=== PATIENT | female | born 1995 | race African-American/Black ===

== ENCOUNTER 2017-10-11 12:55 | Emergency (ER) | payer BC, OTHER ==
[~2017-10-11] VITALS: Ht 180.3 cm; Wt 75.0 kg
[~2017-10-11 12:55] MED LIST: CEPH500C3 PO
[2017-10-11 12:57] VITALS: BP 108/62; PULSE 80; RESP 13; TEMP 98.6; O2SAT 100
[2017-10-11] MEDS ORDERED: SODIUM CHLORID 0.9% 500 ML INJ 500 ML IV ONE (13:45)
--- NOTE | 2017-10-11 13:50 | PD ---
HPI Chief Complaint: Dizziness Time Seen by Provider: 13:28 Travel History International Travel<30 days: No Contact w/Intl Traveler<30days: No Traveled to known affect area: No History of Present Illness HPI 22-year-old female that presents to the ED for evaluation of dizziness and headache as well as chest discomfort. Per patient she's had this since today. Per patient she was seen at a different hospital last week for evaluation of similar. Per patient she feels like she is given off pain. Per patient she feels dizzy. Per patient her period started today and she is having abdominal cramping. She denies any urinary or bowel movement issues. She denies any fevers chills or sweats. Per patient the chest discomfort is 4 out of 10. Denies . Per patient she was able to follow with her doctor who has referred her to a router operator pin and a operations label clerk and she has not seen him yet. Per patient she is not sure what she was referred to a operations label clerk but from what she still any she's been having heavy periods with menses since age 12 and she does have a history of sickle cell in the family been on herself. She states that she's had migraine headaches her whole life. She's been taking ibuprofen with minimal relief. Per patient the headache gets worse with light. Per patient she was told that the hospital that if she got worse she needed to come back. She states that she feels like she is have the same symptoms that she's given a passout as she had last time. Denies any numbness, tilling, weakness. No other medical issues. Takes no medications a daily basis. PFSH Past Medical History Diminished Hearing: No Medical other: Yes (intermittant syncopal episodes (4 times in the last 3 years )) Immunizations Current: Yes ?: Not LMP: current : 0 Past Surgical History Surgical History: No Previous Surgery Social History Alcohol Use: No Tobacco Use: No Substance Use: No Allergies-Medications (Allergen,Severity, Reaction): Coded Allergies: No Known Allergies (Verified Allergy, Unknown, 10/11/17) Reported Meds & Prescriptions Reported Meds & Active Scripts Active Zofran Odt (Ondansetron Odt) 4 Mg Tab 4 Mg SL Q6HR PRN Diclofenac Sodium DR (Diclofenac Sodium) 75 Mg Tabdr 75 Mg PO BID PRN Review of Systems Except as stated in HPI: all other systems reviewed are Neg Physical Exam Narrative GENERAL: SKIN: Warm and dry. HEAD: Atraumatic. Normocephalic. EYES: Pupils equal and round 4 mm reactive to light and accomodation. No scleral icterus. No injection or drainage. ENT: No nasal bleeding or discharge. Mucous membranes pink and moist. NECK: Trachea midline. No JVD. CARDIOVASCULAR: Regular rate and rhythm. No murmurs, S3, S4. RESPIRATORY: No accessory muscle use. Clear to auscultation. Breath sounds equal bilaterally. GASTROINTESTINAL: Abdomen soft, non-tender, nondistended. Hepatic and splenic margins not palpable. MUSCULOSKELETAL: Extremities without clubbing, cyanosis, or edema. No obvious deformities. Full range of motion of the upper and lower extremities bilaterally. 2+ pulses bilaterally. No lumbar, thoracic, cervical spine tenderness to palpation. NEUROLOGICAL: Awake and alert. No obvious cranial nerve deficits. Motor grossly within normal limits. Five out of 5 muscle strength in the arms and legs. Normal speech. PSYCHIATRIC: Appropriate mood and affect; insight and judgment normal. Data Data Last Documented VS Vital Signs Date Time Temp Pulse Resp B/P (MAP) Pulse Ox O2 Delivery O2 Flow Rate FiO2 10/11/17 15:08 100 Room Air 10/11/17 12:57 98.6 80 13 Orders Orders Electrocardiogram (10/11/17 13:33) Complete Blood Count With Diff (10/11/17 13:33) Comprehensive Metabolic Panel (10/11/17 13:33) Ckmb (Isoenzyme) Profile (10/11/17 13:33) Troponin I (10/11/17 13:33) Lipase (10/11/17 13:33) Urinalysis - C+S If Indicated (10/11/17 13:33) D-Dimer (10/11/17 13:33) Magnesium (Mg) (10/11/17 13:33) Thyroid Stimulating Hormone (10/11/17 13:33) Chest, Single Ap (10/11/17 13:33) Ct Brain W/O Iv Contrast(Rout) (10/11/17 13:33) Iv Access Insert/Monitor (10/11/17 13:33) Ecg Monitoring (10/11/17 13:33) Oximetry (10/11/17 13:33) Sodium Chlorid 0.9% 500 Ml Inj (Ns 500 M (10/11/17 13:45) Orthostatic Vital Signs (10/11/17 13:34) Sodium Chlor 0.9% 1000 Ml Inj (Ns 1000 M (10/11/17 14:00) CKMB (10/11/17 13:40) CKMB% (10/11/17 13:40) Ed Urine Pregnancytest Poc (10/11/17 14:56) Ct Thorax/ Chest Wo Iv Contras (10/11/17 ) Ed Discharge Order (10/11/17 16:34) Labs Laboratory Tests Test 10/11/17 13:40 10/11/17 13:52 White Blood Count 5.5 TH/MM3 Red Blood Count 4.08 MIL/MM3 Hemoglobin 12.5 GM/DL Hematocrit 36.8 % Mean Corpuscular Volume 90.3 FL Mean Corpuscular Hemoglobin 30.7 PG Mean Corpuscular Hemoglobin Concent 34.0 % Red Cell Distribution Width 13.2 % Platelet Count 214 TH/MM3 Mean Platelet Volume 9.0 FL Neutrophils (%) (Auto) 68.1 % Lymphocytes (%) (Auto) 23.6 % Monocytes (%) (Auto) 7.1 % Eosinophils (%) (Auto) 0.9 % Basophils (%) (Auto) 0.3 % Neutrophils # (Auto) 3.8 TH/MM3 Lymphocytes # (Auto) 1.3 TH/MM3 Monocytes # (Auto) 0.4 TH/MM3 Eosinophils # (Auto) 0.1 TH/MM3 Basophils # (Auto) 0.0 TH/MM3 CBC Comment DIFF FINAL Differential Comment D-Dimer Quantitative (PE/DVT) 0.36 MG/L FEU Blood Urea Nitrogen 14 MG/DL Creatinine 1.00 MG/DL Random Glucose 74 MG/DL Total Protein 7.0 GM/DL Albumin 3.7 GM/DL Calcium Level 8.3 MG/DL Magnesium Level 1.9 MG/DL Alkaline Phosphatase 49 U/L Aspartate Amino Transf (AST/SGOT) 11 U/L Alanine Aminotransferase (ALT/SGPT) 12 U/L Total Bilirubin 0.4 MG/DL Sodium Level 139 MEQ/L Potassium Level 3.7 MEQ/L Chloride Level 107 MEQ/L Carbon Dioxide Level 24.6 MEQ/L Anion Gap 7 MEQ/L Estimat Glomerular Filtration Rate 82 ML/MIN Total Creatine Kinase 115 U/L Creatine Kinase MB 0.7 NG/ML Troponin I LESS THAN 0.02 NG/ML Lipase 93 U/L Thyroid Stimulating Hormone 3rd Gen 1.110 uIU/ML Urine Color YELLOW Urine Turbidity HAZY Urine pH 6.0 Urine Specific [place] 1.026 Urine Protein TRACE mg/dL Urine Glucose (UA) NEG mg/dL Urine Ketones NEG mg/dL Urine Occult Blood NEG Urine Nitrite NEG Urine Bilirubin NEG Urine Urobilinogen 2.0 MG/DL Urine Leukocyte Esterase NEG Urine RBC 1 /hpf Urine WBC 2 /hpf Urine Squamous Epithelial Cells 9 /hpf Urine Bacteria RARE /hpf Urine Mucus MOD /lpf Microscopic Urinalysis Comment CULT NOT INDICATED MDM Medical Decision Making Medical Screen Exam Complete: Yes Emergency Medical Condition: Yes Medical Record Reviewed: Yes Interpretation(s) CBC & BMP Diagram 10/11/17 13:40 Total Protein 7.0, Albumin 3.7, Calcium Level 8.3 L, Magnesium Level 1.9, Alkaline Phosphatase 49, Aspartate Amino Transf (AST/SGOT) 11 L, Alanine Aminotransferase (ALT/SGPT) 12, Total Bilirubin 0.[address] 10/11/173 Signed Impressions: Service Date/Time: Wednesday, October 11, 2017 14:24 - CONCLUSION: Normal examination. No significant change has occurred. Aurelio Cage MD Chest X-Ray 10/11/171332 Signed Impressions: Service Date/Time: Wednesday, October 11, 2017 14:01 - CONCLUSION: Findings suggesting a slitlike 7 mm left apical pneumothorax. Aurelio Cage MD EKG shows sinus rhythm with no sign of acute ischemia or arrhythmia read by me and attending. Troponin and CK-MB negative. UA negative. CT thorax negative Differential Diagnosis Chest pain versus syncope versus presyncope versus migraine headache versus tension headache versus anemia versus weakness versus vertigo Narrative Course 22-year-old female that presents to the ED for evaluation of possible syncope. Patient was properly examined and was found to have signs and symptoms consistent with appears to be chest pain with possible syncope. Per patient she had workup last week and a different hospital for this. We're getting records from [facility] for this. Patient does have a history of vasovagal syncope in our hospital before. She hasn't been hearing some time. Per history and physical he does appear that she might have some underlying anemia secondary to likely heavy menses. At this time I recommend labs and imaging. Per patient she not had a CT of her head and she is having a headache at this time. Labs and imaging were ordered. She was given IV fluids. Labs and imaging showed possible small pneumothorax per chest x-ray report. Unclear if it is true or pneumothorax or not. Patient's vitals and physical exam are reassuring. With the recommends CT to rule this out. Patient agrees. CT showed no sign of this. My attending and patient agree with plan. This time a recommendation is for follow-up outpatient with router operator pin and operations label clerk is his primary care doctor wanted. At this time I do not see any sign of acute disease. Labs are essentially unremarkable. Patient's vitals and physical exam are reassuring. I suspect maybe migraine headache causing some of the symptoms as patient states having headache. Chest pain appears to be a typical. She doesn't have any risk factors for ACS. D-dimer was negative as well. Patient was treated for this with diclofenac sodium and Zofran. Told to follow up closely with her regular doctor and her radiologist. See ED for worsening symptoms. Follow-up with PCP. Diagnosis Primary Impression: Pre-syncope Additional Impressions: Cephalgia Qualified Codes: G44.209 - Tension-type headache, unspecified, not intractable Atypical chest pain Patient Instructions: General Instructions, Narcotic given in the ED Additional Instructions: Take medications as prescribed. Follow-up with PCP. See ED for any worsening symptoms. Apply ice or heat as needed for pain Med/Other Pt SpecificInfo: Prescription(s) given Scripts Ondansetron Odt (Zofran Odt) 4 Mg Tab 4 MG SL Q6HR Y for Nausea/Vomiting, #30 TAB 0 Refills Prov: Rex Blackwell MD 10/11/[address] (Diclofenac Sodium DR) 75 Mg Tabdr 75 MG PO BID Y for PAIN SCALE 1 TO 10, #20 TAB 0 Refills Prov: Rex Blackwell MD 10/11/17 Disposition: 01 DISCHARGE HOME Condition: Stable Joshua Amaya Oct 11, 2017 13:50
[2017-10-11] MEDS ORDERED: SODIUM CHLOR 0.9% 1000 ML INJ 1,000 ML IV ONE (14:00)
[2017-10-11 14:07] LABS: AUTOMATED NEUTROPHIL # 3.8 TH/MM3 (1.8-7.7); BASOPHIL % 0.3 % (0.0-2.0); EOSINOPHIL # 0.1 TH/MM3 (0-0.4); EOSINOPHIL % 0.9 % (0.0-4.0); HEMATOCRIT 36.8 % (35.0-46.0); HEMOGLOBIN 12.5 GM/DL (11.6-15.3); LYMPH % 23.6 % (9.0-44.0); LYMPHOCYTE # 1.3 TH/MM3 (1.0-4.8); MEAN CELL VOLUME 90.3 FL (80.0-100.0); MEAN CORPUSCULAR HEMOGLOBIN 30.7 PG (27.0-34.0); MONO % 7.1 % (0.0-8.0); MONOCYTE # 0.4 TH/MM3 (0-0.9); NEUT % 68.1 % (16.0-70.0); PLATELET COUNT 214 TH/MM3 (150-450); RED BLOOD COUNT 4.08 MIL/MM3 (4.00-5.30); RED CELL DISTRIBUTION WIDTH 13.2 % (11.6-17.2); WHITE BLOOD COUNT 5.5 TH/MM3 (4.0-11.0)
[2017-10-11 14:11] LABS: BACTERIA, URINE RARE /hpf; BILIRUBIN, URINE NEG (NEG); BLOOD, URINE NEG (NEG); GLUCOSE,URINE NEG (NEG); KETONE, URINE NEG (NEG); MUCUS URINE MOD /lpf (OCC); NITRITE,URINE NEG (NEG); SQUAMOUS EPITHELIAL CELL URINE 9 /hpf (0-5); URINE COLOR YELLOW (YELLW/STRAW); URINE LEUKOCYTE ESTERASE NEG (NEG)
[2017-10-11 14:23] LABS: ALBUMIN 3.7 GM/DL (3.4-5.0); ALT (GPT) 12 U/L (10-53); AST (GOT) 11 U/L (15-37); BICARBONATE 24.6 MEQ/L (21.0-32.0); BLOOD UREA NITROGEN 14 MG/DL (7-18); CALCIUM 8.3 MG/DL (8.5-10.1); CHLORIDE 107 MEQ/L (98-107); GLOMERULAR FILTRATION RATE 82 ML/MIN (>89); GLUCOSE,RANDOM 74 MG/DL (74-106); MAGNESIUM 1.9 MG/DL (1.5-2.5); SODIUM (NA) 139 MEQ/L (136-145)
[2017-10-11 14:33] LABS: ALKALINE PHOSPHATASE 49 U/L (45-117); TOTAL BILIRUBIN ADULT 0.4 MG/DL (0.2-1.0); TROPONIN I LESS THAN 0.02 NG/ML (0.02-0.05)
--- NOTE | 2017-10-11 14:39 | RADRPT ---
EXAM DATE/TIME: 10/11/2017 14:01 [facility] COMPARISON: No previous studies available for comparison. INDICATIONS : Chest pain and syncopal. MEDICAL HISTORY : None. SURGICAL HISTORY : None. ENCOUNTER: Initial ACUITY: 1 month PAIN SCORE: 10/10 LOCATION: Bilateral chest FINDINGS: A single view of the chest demonstrates the lungs to be symmetrically aerated without evidence of mas s, infiltrate or effusion. The cardiomediastinal contours are unremarkable. Osseous structures are intact. There is suggestion of a slitlike 7 mm left apical pneumothorax CONCLUSION: Findings suggesting a slitlike 7 mm left apical pneumothorax. Aurelio Cage MD on October 11, 2017 at 14:35 Board Certified Radiologist. This report was verified electronically.
--- NOTE | 2017-10-11 14:43 | RADRPT ---
EXAM DATE/TIME: 10/11/2017 14:24 [facility] COMPARISON: CT BRAIN W/O CONTRAST, August 29, 2011, 21:16. INDICATIONS : Cephalgia today. RADIATION DOSE: 56.35 CTDIvol (mGy) MEDICAL HISTORY : None SURGICAL HISTORY : None. ENCOUNTER: Initial ACUITY: 1 day PAIN SCALE: 7/10 LOCATION: Bilateral head TECHNIQUE: Multiple contiguous axial images were obtained of the head. Using automated exposure control and adj ustment of the mA and/or kV according to patient size, radiation dose was kept as low as reasonably a chievable to obtain optimal diagnostic quality images. DICOM format image data is available electro nically for review and comparison. FINDINGS: CEREBRUM: The ventricles are normal for age. No evidence of midline shift, mass lesion, hemorrhage or acute in farction. No extra-axial fluid collections are seen. POSTERIOR FOSSA: The cerebellum and brainstem are intact. The 4th ventricle is midline. The cerebellopontine angle i s unremarkable. EXTRACRANIAL: The visualized portion of the orbits is intact. SKULL: The calvaria is intact. No evidence of skull fracture. CONCLUSION: Normal examination. No significant change has occurred. Aurelio Cage MD on October 11, 2017 at 14:40 Board Certified Radiologist. This report was verified electronically.
[2017-10-11 15:08] VITALS: O2SAT 100
--- NOTE | 2017-10-11 16:26 | RADRPT ---
EXAM DATE/TIME: 10/11/2017 16:14 [facility] COMPARISON: CHEST SINGLE AP, October 11, 2017, 14:01. INDICATIONS : Chest pain and shortness of breath today. RADIATION DOSE: 5.1 CTDIvol (mGy) MEDICAL HISTORY : None SURGICAL HISTORY : None. ENCOUNTER: Initial ACUITY: 1 day PAIN SCALE: 4/10 LOCATION: Bilateral chest TECHNIQUE: Volumetric scanning of the chest was performed. Using automated exposure control and adjustment of t he mA and/or kV according to patient size, radiation dose was kept as low as reasonably achievable to obtain optimal diagnostic quality images. DICOM format image data is available electronically for r eview and comparison. Follow-up recommendations for detected pulmonary nodules are based at a minimum on nodule size and pa tient risk factors according to Fleischner Society Guidelines. FINDINGS: LUNGS: There is no consolidation or pneumothorax. No concerning pulmonary nodule is visualized. PLEURAE: There is no pleural thickening or pleural effusion. MEDIASTINUM: The heart and great vessels demonstrate no acute abnormality. There is no mediastinal or hilar lymph adenopathy. AXILLAE: Within normal limits. No lymphadenopathy. MUSCULOSKELETAL: Within normal limits for patient age. MISCELLANEOUS: The visualized upper abdominal organs demonstrate no acute abnormality. CONCLUSION: Normal examination. No acute cardiopulmonary process. No evidence of left pneumothorax which was sug gested on chest x-ray Aurelio Cage MD on October 11, 2017 at 16:22 Board Certified Radiologist. This report was verified electronically.
[2017-10-11] MEDS ORDERED: DICL75TA PO (16:30)
[2017-10-11] MEDS ORDERED: ZOFR4TAB3 SL (16:30)
[2017-10-11] MEDS ORDERED: MORPHINE SULFATE 2 MG/ML INJ IV PUSH ONE (16:45)
[2017-10-11] MEDS ORDERED: KETOROLAC TROMETHAMINE 30 MG/ML (IVP) VIAL IV PUSH ONE (16:45)
[2017-10-11] MEDS ORDERED: ONDANSETRON HCL 4 MG/2 ML VIAL IV PUSH ONE (16:45)
[2017-10-11 16:58] VITALS: BP 118/71; PULSE 83; RESP 17; O2SAT 99
--- NOTE | 2017-10-12 17:26 | EKG ---
Date Performed: 10/11/2017 Time Performed: 15:04:04 PTAGE: 22 years EKG: Sinus rhythm NORMAL ECG PREVIOUS TRACING : 08/29/2011 19.29 Since the prior tracing, there has been no significant joseph DOCTOR: Walter Pink Interpretating Date/Time 10/12/2017 17:25:31
== END 2017-10-11 18:46 | disposition home or self-care (01) ==
LOC: NEPE 12:55
DX: R55 Syncope and collapse (principal); G44.209 Tension-type headache, unspecified, not intractable; R07.89 Other chest pain; N92.0 Excessive and frequent menstruation with regular cycle
CPT/HCPCS: 70450; 71045; 71250; 80053; 81001; 82550; 82552; 83690; 83735; 84443; 84484; 84703; 85025; 85379; 93005; 99285; J7030; J7040

== ENCOUNTER 2017-11-23 13:34 | Emergency (ER) | payer BC ==
[~2017-11-23] VITALS: Ht 182.9 cm; Wt 77.0 kg
[~2017-11-23 13:34] MED LIST changes: -CEPH500C3 PO; +DICL75TA PO; +ZOFR4TAB3 SL
[2017-11-23 13:48] VITALS: BP 108/54; PULSE 83; RESP 18; TEMP 98; O2SAT 99
== END 2017-11-23 16:06 | disposition left against medical advice (07) ==
LOC: NED 13:34
DX: R07.9 Chest pain, unspecified (principal); Z53.21 Procedure and treatment not carried out due to patient leaving prior to being seen by health care provider
CPT/HCPCS: 99281

== ENCOUNTER 2017-12-20 21:04 | Emergency (ER) | payer BC ==
[~2017-12-20] VITALS: Ht 182.9 cm; Wt 77.3 kg
[2017-12-20 21:25] VITALS: BP 109/56; PULSE 80; RESP 15; TEMP 98.7; O2SAT 100
--- NOTE | 2017-12-20 21:57 | PD ---
HPI Chief Complaint: GI Complaint Time Seen by Provider: 21:53 Travel History International Travel<30 days: No Contact w/Intl Traveler<30days: No Traveled to known affect area: No History of Present Illness HPI 22-year-old female with no significant past medical history, presents today with complaints of lower abdominal cramping with associated loose stools and nausea. Patient states that over the last 2 days she has had cramping in her lower abdominal area. She denies any vaginal bleeding or discharge. Patient states that she states it cramping feels as though it is like a menstrual period however there is no bleeding. She reports that she had loose stools 2 today. She states that when she got home, she had nausea and almost vomited. There are no other complaints at the time of my examination. PFSH Past Medical History Medical History: Denies Significant Hx Diminished Hearing: No Immunizations Current: Yes ?: Unknown LMP: 11/07/2017 : 0 Past Surgical History Surgical History: No Previous Surgery Social History Alcohol Use: Yes Tobacco Use: No Substance Use: No Allergies-Medications (Allergen,Severity, Reaction): Coded Allergies: No Known Allergies (Verified Allergy, Unknown, 10/11/17) Reported Meds & Prescriptions Reported Meds & Active Scripts Active Plus Iron 29-1 mg ( Vit-Iron Carbonyl) 29 Mg Iron-1 Mg Tab 1 Tab PO DAILY Zofran Odt (Ondansetron Odt) 4 Mg Tab 4 Mg SL Q6HR PRN Diclofenac Sodium DR (Diclofenac Sodium) 75 Mg Tabdr 75 Mg PO BID PRN Review of Systems Except as stated in HPI: all other systems reviewed are Neg General / Constitutional: No: Fever, Chills HENT: No: Headaches, Lightheadedness Cardiovascular: No: Chest Pain or Discomfort Respiratory: No: Cough, Shortness of Breath Gastrointestinal: Positive: Nausea, Diarrhea (Loose stools 2 tonight), Abdominal Pain (Crampy pelvic), No: Vomiting Genitourinary: Positive: Pelvic Pain (Cramping), No: Dysuria ( like a menstrual cycle.), Vaginal Bleeding Musculoskeletal: No: Weakness, Pain Neurologic: No: Weakness, Dizziness, Headache Physical Exam Narrative GENERAL: Well-nourished, well-developed patient, in no acute distress. SKIN: Focused skin assessment warm/dry. HEAD: Normocephalic/atraumatic. EYES: No scleral icterus. No injection or drainage. NECK: Supple, trachea midline. No JVD or lymphadenopathy. CARDIOVASCULAR: Regular rate and rhythm without murmurs, gallops, or rubs. RESPIRATORY: Breath sounds equal bilaterally. No accessory muscle use. GASTROINTESTINAL: Abdomen soft, nondistended. Patient states subjective cramping. No rebound or guarding. MUSCULOSKELETAL: No cyanosis, or edema. BACK: Nontender without obvious deformity. No CVA tenderness. NEUROLOGICAL: Awake and alert. Cranial nerves II through XII intact. Motor within normal limits. Five out of 5 muscle strength in all muscle groups. Normal speech. Data Data Last Documented VS Vital Signs Date Time Temp Pulse Resp B/P (MAP) Pulse Ox O2 Delivery O2 Flow Rate FiO2 12/20/17 21:25 98.7 80 15 109/56 (73) 100 Orders Orders Complete Blood Count With Diff (12/20/17 21:53) Basic Metabolic Panel (Bmp) (12/20/17 21:53) Urinalysis - C+S If Indicated (12/20/17 21:53) Beta Hcg (Quant/Titer) (12/20/17 21:53) Iv Access Insert/Monitor (12/20/17 21:53) Ecg Monitoring (12/20/17 21:53) Oximetry (12/20/17 21:53) Ed Urine Pregnancytest Poc (12/20/17 21:53) Us Pelvis (Ques Pr/Ect)W Trans (12/21/17 ) Labs Laboratory Tests Test 12/20/17 21:50 White Blood Count 7.0 TH/MM3 Red Blood Count 4.08 MIL/MM3 Hemoglobin 12.5 GM/DL Hematocrit 36.9 % Mean Corpuscular Volume 90.5 FL Mean Corpuscular Hemoglobin 30.6 PG Mean Corpuscular Hemoglobin Concent 33.8 % Red Cell Distribution Width 13.6 % Platelet Count 256 TH/MM3 Mean Platelet Volume 8.5 FL Neutrophils (%) (Auto) 66.9 % Lymphocytes (%) (Auto) 23.8 % Monocytes (%) (Auto) 7.5 % Eosinophils (%) (Auto) 1.1 % Basophils (%) (Auto) 0.7 % Neutrophils # (Auto) 4.7 TH/MM3 Lymphocytes # (Auto) 1.7 TH/MM3 Monocytes # (Auto) 0.5 TH/MM3 Eosinophils # (Auto) 0.1 TH/MM3 Basophils # (Auto) 0.1 TH/MM3 CBC Comment DIFF FINAL Differential Comment Urine Color YELLOW Urine Turbidity CLEAR Urine pH 6.0 Urine Specific [place] 1.029 Urine Protein TRACE mg/dL Urine Glucose (UA) NEG mg/dL Urine Ketones NEG mg/dL Urine Occult Blood NEG Urine Nitrite NEG Urine Bilirubin NEG Urine Urobilinogen 2.0 MG/DL Urine Leukocyte Esterase MOD Urine RBC 1 /hpf Urine WBC 7 /hpf Urine Squamous Epithelial Cells 7 /hpf Urine Mucus FEW /lpf Microscopic Urinalysis Comment CULT NOT INDICATED Blood Urea Nitrogen 15 MG/DL Creatinine 0.95 MG/DL Random Glucose 81 MG/DL Calcium Level 9.1 MG/DL Sodium Level 138 MEQ/L Potassium Level 3.3 MEQ/L Chloride Level 105 MEQ/L Carbon Dioxide Level 24.9 MEQ/L Anion Gap 8 MEQ/L Estimat Glomerular Filtration Rate 87 ML/MIN Human Chorionic Gonadotropin, Quant 01227 MIU/ML MDM Medical Decision Making Medical Screen Exam Complete: Yes Emergency Medical Condition: Yes Differential Diagnosis Gastroenteritis versus cystitis versus ectopic Narrative Course 22-year-old female presents today with lower abdominal cramping. Patient states that she last had her menstrual cycle last month. She denies any vaginal bleeding. She denies any vaginal discharge. She denies any urinary symptoms. Beta-hCG was 31,000. Patient had a ultrasound which showed a 6 week gestational age intrauterine . There were no detectable heart rate which could be related to the early gestational age. The patient will be discharged with a prescription for vitamins. She will be instructed to follow-up with the [facility]. She is instructed to return if she does any worsening symptoms i.e. discomfort or vaginal bleeding or discharge. Diagnosis Primary Impression: Intrauterine Additional Impressions: Abdominal pain Nausea. Referrals: [facility] Med/Other Pt SpecificInfo: Prescription(s) given Scripts Vit-Iron Carbonyl ( Plus Iron 29-1 mg) 29 Mg Iron-1 Mg Tab 1 TAB PO DAILY for Nutritional Supplement, #30 TAB 0 Refills Prov: Austin Rice MD 12/21/17 Disposition: 01 DISCHARGE HOME Condition: Stable Austin Rice MD Dec 20, 2017 21:57
[2017-12-20 22:15] LABS: AUTOMATED NEUTROPHIL # 4.7 TH/MM3 (1.8-7.7); BASOPHIL # 0.1 TH/MM3 (0-0.2); BASOPHIL % 0.7 % (0.0-2.0); EOSINOPHIL # 0.1 TH/MM3 (0-0.4); EOSINOPHIL % 1.1 % (0.0-4.0); HEMATOCRIT 36.9 % (35.0-46.0); HEMOGLOBIN 12.5 GM/DL (11.6-15.3); LYMPH % 23.8 % (9.0-44.0); LYMPHOCYTE # 1.7 TH/MM3 (1.0-4.8); MEAN CELL VOLUME 90.5 FL (80.0-100.0); MEAN CORPUSCULAR HEMOGLOBIN 30.6 PG (27.0-34.0); MEAN CORPUSCULAR HGB CONC 33.8 % (32.0-36.0); MEAN PLATELET VOLUME 8.5 FL (7.0-11.0); MONO % 7.5 % (0.0-8.0); MONOCYTE # 0.5 TH/MM3 (0-0.9); NEUT % 66.9 % (16.0-70.0); PLATELET COUNT 256 TH/MM3 (150-450); RED BLOOD COUNT 4.08 MIL/MM3 (4.00-5.30); RED CELL DISTRIBUTION WIDTH 13.6 % (11.6-17.2)
[2017-12-20 22:22] LABS: BILIRUBIN, URINE NEG (NEG); BLOOD, URINE NEG (NEG); GLUCOSE,URINE NEG (NEG); KETONE, URINE NEG (NEG); MUCUS URINE FEW /lpf (OCC); NITRITE,URINE NEG (NEG); SQUAMOUS EPITHELIAL CELL URINE 7 /hpf (0-5); URINE COLOR YELLOW (YELLW/STRAW); URINE LEUKOCYTE ESTERASE MOD (NEG)
[2017-12-20 22:44] LABS: BICARBONATE 24.9 MEQ/L (21.0-32.0); CALCIUM 9.1 MG/DL (8.5-10.1); CREATININE 0.95 MG/DL (0.50-1.00)
--- NOTE | 2017-12-21 01:19 | RADRPT ---
EXAM DATE/TIME: 12/21/2017 00:36 [facility] COMPARISON: No previous studies available for comparison. INDICATIONS : Ectopic. LAB(S): Beta-hC MEDICAL HISTORY : Pelvic pain. SURGICAL HISTORY : None. ENCOUNTER: Initial ACUITY: 1 day PAIN SCORE: 2/10 LOCATION: Bilateral pelvis MEASUREMENTS: UTERUS: 9.2 x 6.1 x 5.4 cm ENDOMETRIAL STRIPE: >20 mm RIGHT OVARY: 2.7 x 1.2 x 1.2 cm LEFT OVARY: 3.5 x 2.0 x 1.8 cm FREE FLUID: Yes Trace in cul de sac CROWN RUMP LENGTH: 0.3 = 5 WKS 6 DAYS FINDINGS: UTERUS: A single intrauterine gestation is is observed. There is a well-formed gestational sac with mean sac diameter of 1.9 cm which equals 6 weeks 3 days gestational age. A yolk sac and pole are noted. [place]-rump length measures 0.31 cm which equals 5 weeks 6 days gestational age. No detectable h eart rate currently. RIGHT OVARY: Ovary contains no mass or significant cystic lesion. LEFT OVARY: Ovary contains no mass or significant cystic lesion. MISCELLANEOUS: A small amount of free fluid is seen within the cul-de-sac. CONCLUSION: 1. Single intrauterine gestation. Age by gestational sac is 6 weeks 3 days in age by crown-rump lengt h 5 weeks 6 days. Currently there is no detectable heart rate which could relate to the early n ature of the gestation. Consideration could be made to short-term followup ultrasound. 2. Small amount of free fluid. Semaj Reid Jr., MD on December 21, 2017 at 1:14 Board Certified Radiologist. This report was verified electronically.
[2017-12-21] MEDS ORDERED: PREN29TA PO (01:51)
== END 2017-12-21 02:06 | disposition home or self-care (01) ==
LOC: NEPE 21:04
DX: O26.891 Other specified pregnancy related conditions, first trimester (principal); R11.0 Nausea; Z3A.01 Less than 8 weeks gestation of pregnancy
CPT/HCPCS: 76700; 76817; 80048; 81001; 84702; 84703; 85025

== ENCOUNTER 2018-01-22 08:40 | Emergency (ER) | payer BC, OTHER ==
[~2018-01-22] VITALS: Ht 182.9 cm; Wt 75.0 kg
[~2018-01-22 08:40] MED LIST changes: +PREN29TA PO
[2018-01-22 08:45] VITALS: BP 114/57; PULSE 72; RESP 16; TEMP 98.8; O2SAT 100
[2018-01-22] MEDS ORDERED: SODIUM CHLOR 0.9% 1000 ML INJ 1,000 ML IV ONE (09:07)
[2018-01-22] MEDS ORDERED: SODIUM CHLORIDE 0.9% FLUSH 10 ML FLUSH IVF PRN (09:15)
[2018-01-22] MEDS ORDERED: ACETAMINOPHEN 500 MG CPLT PO ONE (09:15)
[2018-01-22] MEDS ORDERED: ONDANSETRON ODT 4 MG TAB PO ONE (09:15)
--- NOTE | 2018-01-22 09:22 | PD ---
HPI Chief Complaint: Syncope/Near-Syncope Time Seen by Provider: 09:06 Travel History International Travel<30 days: No Contact w/Intl Traveler<30days: No Traveled to known affect area: No History of Present Illness HPI 22-year-old -[place] female with history of migraines, and syncopal events in the past, presents emergency department with reports of migraine, and syncopal event earlier this morning. Patient is 11.5 weeks by her admission. She denies abdominal pain, nausea, vomiting, or vaginal bleeding or discharge. She denies urinary symptoms. Patient states she is to take Topamax and ibuprofen for her migraines, but is not taking that secondary to her . She states she has been seen by packing checker as well as neurologist without significant findings regarding her previous syncopal events and migraines. Patient states her headache is improved since this morning. She states she felt lightheaded and woozy at approximately 630 this morning after getting out of bed. She then apparently blacked out for a short time. Currently she states her headache is 8 out of 10 and improved from previous. She states she took some Tylenol earlier without improvement. She complains of chest tightness, but denies shortness of breath, cough, wheezing, or other symptoms. She has no known drug allergies. PFSH Past Medical History Diminished Hearing: No Immunizations Current: Yes ?: : 0 Social History Alcohol Use: Yes Tobacco Use: No Substance Use: No Allergies-Medications (Allergen,Severity, Reaction): Coded Allergies: No Known Allergies (Verified Allergy, Unknown, 10/11/17) Reported Meds & Prescriptions Reported Meds & Active Scripts Active Plus Iron 29-1 mg ( Vit-Iron Carbonyl) 29 Mg Iron-1 Mg Tab 1 Tab PO DAILY Zofran Odt (Ondansetron Odt) 4 Mg Tab 4 Mg SL Q6HR PRN Diclofenac Sodium DR (Diclofenac Sodium) 75 Mg Tabdr 75 Mg PO BID PRN Review of Systems Except as stated in HPI: all other systems reviewed are Neg General / Constitutional: No: Fever Eyes: No: Visual changes HENT: No: Headaches Cardiovascular: No: Chest Pain or Discomfort Respiratory: No: Shortness of Breath Gastrointestinal: No: Abdominal Pain Genitourinary: No: Dysuria Musculoskeletal: No: Pain Skin: No Rash Neurologic: No: Weakness Psychiatric: No: Depression Endocrine: No: Polydipsia Hematologic/Lymphatic: No: Easy Bruising Physical Exam Narrative GENERAL: Patient appears in no acute distress at all SKIN: Warm and dry. Normal color. Normal turgor. HEAD: Atraumatic. Normocephalic. Nontender. EYES: Pupils equal and round. No scleral icterus. No injection or drainage. No photophobia. ENT: No nasal bleeding or discharge. Mucous membranes pink and moist. Pharynx is clear. Airways patent. TMs are clear. NECK: Trachea midline. Supple nontender per CARDIOVASCULAR: Regular rate and rhythm. RESPIRATORY: No accessory muscle use. Clear to auscultation. Breath sounds equal bilaterally. GASTROINTESTINAL: Abdomen soft, non-tender, nondistended. Hepatic and splenic margins not palpable. No CVA tenderness. MUSCULOSKELETAL: Extremities without clubbing, cyanosis, or edema. No obvious deformities. NEUROLOGICAL: Awake and alert. No obvious cranial nerve deficits. Motor grossly within normal limits. Five out of 5 muscle strength in the arms and legs. Normal speech. PSYCHIATRIC: Appropriate mood and affect; insight and judgment normal. Data Data Last Documented VS Vital Signs Date Time Temp Pulse Resp B/P (MAP) Pulse Ox O2 Delivery O2 Flow Rate FiO2 01/22/18 10:05 Room Air 01/22/18 10:02 67 15 114/67 (83) 01/22/18 08:45 98.8 100 Orders Orders Electrocardiogram (01/22/18 ) Beta Hcg (Quant/Titer) (01/22/18 09:07) Complete Blood Count With Diff (01/22/18 09:07) Comprehensive Metabolic Panel (01/22/18 09:07) Magnesium (Mg) (01/22/18 09:07) Act Partial Throm Time (Ptt) (01/22/18 09:07) Prothrombin Time / Inr (Pt) (01/22/18 09:07) Urinalysis - C+S If Indicated (01/22/18 09:07) Ecg Monitoring (01/22/18 09:07) Iv Access Insert/Monitor (01/22/18 09:07) Oximetry (01/22/18 09:07) Sodium Chloride 0.9% Flush (Ns Flush) (01/22/18 09:15) Sodium Chlor 0.9% 1000 Ml Inj (Ns 1000 M (01/22/18 09:07) Orthostatic Vital Signs (01/22/18 09:07) Heart Tones (01/22/18 09:07) Acetaminophen (Tylenol) (01/22/18 09:15) Ondansetron Odt (Zofran Odt) (01/22/18 09:15) Labs Laboratory Tests Test 01/22/18 09:48 01/22/18 10:00 01/22/18 10:35 White Blood Count 6.0 TH/MM3 Red Blood Count 3.73 MIL/MM3 Hemoglobin 11.4 GM/DL Hematocrit 33.4 % Mean Corpuscular Volume 89.4 FL Mean Corpuscular Hemoglobin 30.5 PG Mean Corpuscular Hemoglobin Concent 34.1 % Red Cell Distribution Width 13.4 % Platelet Count 211 TH/MM3 Mean Platelet Volume 8.6 FL Neutrophils (%) (Auto) 61.3 % Lymphocytes (%) (Auto) 28.7 % Monocytes (%) (Auto) 7.6 % Eosinophils (%) (Auto) 1.9 % Basophils (%) (Auto) 0.5 % Neutrophils # (Auto) 3.7 TH/MM3 Lymphocytes # (Auto) 1.7 TH/MM3 Monocytes # (Auto) 0.5 TH/MM3 Eosinophils # (Auto) 0.1 TH/MM3 Basophils # (Auto) 0.0 TH/MM3 CBC Comment DIFF FINAL Differential Comment Blood Urea Nitrogen 9 MG/DL Creatinine 0.75 MG/DL Random Glucose 79 MG/DL Total Protein 6.6 GM/DL Albumin 3.2 GM/DL Calcium Level 8.2 MG/DL Magnesium Level 1.8 MG/DL Alkaline Phosphatase 38 U/L Aspartate Amino Transf (AST/SGOT) 11 U/L Alanine Aminotransferase (ALT/SGPT) 12 U/L Total Bilirubin 0.3 MG/DL Sodium Level 138 MEQ/L Potassium Level 3.4 MEQ/L Chloride Level 104 MEQ/L Carbon Dioxide Level 25.4 MEQ/L Anion Gap 9 MEQ/L Estimat Glomerular Filtration Rate 115 ML/MIN Human Chorionic Gonadotropin, Quant 65559 MIU/ML Urine Color YELLOW Urine Turbidity HAZY Urine pH 7.5 Urine Specific [place] 1.017 Urine Protein TRACE mg/dL Urine Glucose (UA) NEG mg/dL Urine Ketones NEG mg/dL Urine Occult Blood NEG Urine Nitrite NEG Urine Bilirubin NEG Urine Urobilinogen LESS THAN 2.0 MG/DL Urine Leukocyte Esterase SMALL Urine RBC 2 /hpf Urine WBC 7 /hpf Urine Squamous Epithelial Cells 13 /hpf Urine Bacteria OCC /hpf Urine Mucus FEW /lpf Microscopic Urinalysis Comment CULT NOT INDICATED MDM Medical Decision Making Medical Screen Exam Complete: Yes Emergency Medical Condition: Yes Differential Diagnosis Headache. Migraine. . Syncopal episode. Atypical chest pain. Narrative Course Vital signs are stable. EKG performed in triage shows normal sinus rhythm without significant findings. Labs ordered including CBC, CMP, magnesium, coagulation studies ,Serum hCG, and urinalysis. IV access is obtained and the patient is given 1000 mL of normal saline bolus. Patient is given 1000 mg acetaminophen p.o. as well as 4 mg Zofran ODT p.o. Orthostatic vital signs are ordered. CBC shows hemoglobin of 11.4, hematocrit of 33.4. CMP shows sodium 138, potassium 3.4. Calcium is 8.2. Albumin 3.2. [place] [address] Urinalysis is unremarkable. Patient was reassessed and felt improved. Patient be discharged home, with instructions to drink plenty of fluids, take Tylenol as needed for headache, and rest for the rest of the day Work note was given for today. Patient to follow-up with mastercam programmer, neurologist, and packing checker as previously scheduled. Patient can return with worsening symptoms as needed. Diagnosis Primary Impression: Cephalgia Qualified Codes: R51 - Headache Additional Impressions: Qualified Codes: Z3A.11 - 11 weeks gestation of Syncope, near Patient Instructions: General Instructions Departure Forms: Work Release Enter return to work date: January 23, 2018 Additional Instructions: CBC shows hemoglobin of 11.4, hematocrit of 33.4. CMP shows sodium 138, potassium 3.4. Calcium is 8.2. Albumin 3.2. [place] [address] Urinalysis is unremarkable. Patient was reassessed and felt improved. Patient be discharged home, with instructions to drink plenty of fluids, take Tylenol as needed for headache, and rest for the rest of the day Work note was given for today. Patient to follow-up with mastercam programmer, neurologist, and packing checker as previously scheduled. Patient can return with worsening symptoms as needed. Disposition: DISCHARGE HOME Condition: Stable Carlos A Hines January 22, 2018 09:22
[2018-01-22 09:56] LABS: AUTOMATED NEUTROPHIL # 3.7 TH/MM3 (1.8-7.7); BASOPHIL % 0.5 % (0.0-2.0); EOSINOPHIL # 0.1 TH/MM3 (0-0.4); EOSINOPHIL % 1.9 % (0.0-4.0); HEMATOCRIT 33.4 % (35.0-46.0); HEMOGLOBIN 11.4 GM/DL (11.6-15.3); LYMPH % 28.7 % (9.0-44.0); LYMPHOCYTE # 1.7 TH/MM3 (1.0-4.8); MEAN CELL VOLUME 89.4 FL (80.0-100.0); MEAN CORPUSCULAR HEMOGLOBIN 30.5 PG (27.0-34.0); MEAN CORPUSCULAR HGB CONC 34.1 % (32.0-36.0); MEAN PLATELET VOLUME 8.6 FL (7.0-11.0); MONO % 7.6 % (0.0-8.0); MONOCYTE # 0.5 TH/MM3 (0-0.9); NEUT % 61.3 % (16.0-70.0); PLATELET COUNT 211 TH/MM3 (150-450); RED BLOOD COUNT 3.73 MIL/MM3 (4.00-5.30); RED CELL DISTRIBUTION WIDTH 13.4 % (11.6-17.2)
[2018-01-22 10:01] VITALS: BP 105/54; RESP 18
[2018-01-22 10:02] VITALS: BP 114/67; RESP 15
[2018-01-22 10:31] LABS: ALBUMIN 3.2 GM/DL (3.4-5.0); ALT (GPT) 12 U/L (10-53); AST (GOT) 11 U/L (15-37); BICARBONATE 25.4 MEQ/L (21.0-32.0); BLOOD UREA NITROGEN 9 MG/DL (7-18); CALCIUM 8.2 MG/DL (8.5-10.1); CHLORIDE 104 MEQ/L (98-107); CREATININE 0.75 MG/DL (0.50-1.00); GLOMERULAR FILTRATION RATE 115 ML/MIN (>89); GLUCOSE,RANDOM 79 MG/DL (74-106); MAGNESIUM 1.8 MG/DL (1.5-2.5); SODIUM (NA) 138 MEQ/L (136-145)
[2018-01-22 10:48] LABS: ALKALINE PHOSPHATASE 38 U/L (45-117); TOTAL BILIRUBIN ADULT 0.3 MG/DL (0.2-1.0); TOTAL PROTEIN 6.6 GM/DL (6.4-8.2)
[2018-01-22 11:06] LABS: BACTERIA, URINE OCC /hpf; BILIRUBIN, URINE NEG (NEG); BLOOD, URINE NEG (NEG); GLUCOSE,URINE NEG (NEG); KETONE, URINE NEG (NEG); MUCUS URINE FEW /lpf (OCC); NITRITE,URINE NEG (NEG); PH, URINE 7.5 (5.0-8.5); SQUAMOUS EPITHELIAL CELL URINE 13 /hpf (0-5); URINE COLOR YELLOW (YELLW/STRAW); URINE LEUKOCYTE ESTERASE SMALL (NEG)
[2018-01-22 11:25] LABS: PROTHROMBIN TIME - PATIENT 10.1 SEC (9.8-11.6)
[2018-01-22 11:38] VITALS: BP 97/53; PULSE 68; RESP 18; O2SAT 100
--- NOTE | 2018-01-23 07:24 | EKG ---
Date Performed: 01/22/2018 Time Performed: 08:57:50 PTAGE: 22 years EKG: Sinus rhythm POSSIBLE LEFT ATRIAL ENLARGEMENT BORDERLINE ECG PREVIOUS TRACING : 10/11/2017 15.04 DOCTOR: Rebecca Stubbs Interpretating Date/Time 01/23/2018 07:20:49
== END 2018-01-22 11:44 | disposition home or self-care (01) ==
LOC: NEPD 08:40
DX: O26.891 Other specified pregnancy related conditions, first trimester (principal); R55 Syncope and collapse; R51 Headache; Z3A.11 11 weeks gestation of pregnancy; Z34.91 Encounter for supervision of normal pregnancy, unspecified, first trimester
CPT/HCPCS: 80053; 81001; 83735; 84702; 85025; 85610; 85730; 93005; 99284; J7030

== ENCOUNTER 2018-02-24 09:03 | Day surgery (SDC) | payer BC, OTHER ==
[2018-02-24] MEDS ORDERED: NS 1000 ML IV SCH (09:45)
[2018-02-24] MEDS ORDERED: MUPIROCIN 2% OINT 1 APPLIC/GM SYR NASAL SCH (09:45)
[2018-02-24] MEDS ORDERED: ceFAZolin 2 GM PREMIX 50 ML IV SCH (09:45)
[2018-02-24] MEDS ORDERED: CHLORHEXIDINE GLUCONATE 2 % 1 PACK (2 CLOTHS) TOPICAL SCH (09:45)
[2018-02-24] MEDS ORDERED: POVIDONE IODINE 5% (ANTISEPSIS KIT) 4 APPLICATIONS EACH NARE SCH (09:45)
[2018-02-24] MEDS ORDERED: MIDAZOLAM HCL 5 MG/ML VIAL (1 ML) ONE (09:50)
--- NOTE | 2018-02-24 13:32 | MP ---
cc: Rebecca Stubbs MD, John R DO DATE OF OPERATION: 02/24/2018 PROCEDURE PERFORMED: Loop recorder insertion and sedation. INDICATIONS FOR PROCEDURE: Ms. Robles is a 22-year-old female with syncope who will undergo loop recorder insertion. The risks, the nature and the benefits of the procedure are clearly stated to her. The risks include pneumothorax, infection and even . The patient understood and agreed to proceed. PROCEDURE: After written informed consent was obtained, the patient was brought to the DOC unit where she was prepped and draped in the usual sterile fashion. Conscious sedation was initiated using intravenous Versed and intravenous fentanyl. Once sedation verified, the left parasternal area was anesthetized with 2% Xylocaine. Using a curette, a less than a centimeter incision was made. Subsequently, the loop was inserted under the skin. After adequate sensing obtained, the border was reapproximated using Dermabond and Steri-Strips. No incident report. The patient tolerated the procedure. BLOOD LOSS: Minimal. IMPLANTED HARDWARE: The implanted loop recorder is a [employer], serial number [id number]. SENSING: Sensing is at 0.31 millivolts. SETTINGS: The device set a karla under 30, tachy over 167. CONCLUSIONS: Successful loop recorder insertion and sedation. COMMENT AND RECOMMENDATION: The patient is going to be transferred to the recovery room. He will be observed and when stable, will be discharged home. Rebecca Stubbs MD HS/DL , 12:47 PM , 01:31 PM
== END 2018-02-24 13:55 | disposition home or self-care (01) ==
LOC: HDIC 09:03 → HDOC 09:03
PROVIDERS: ATTEND Internal Medicine Interventional Cardiology
DX: R55 Syncope and collapse (principal)
CPT/HCPCS: 33282; 99152; C1764; J2250; J3010